=== PATIENT | male | born 1975 | race Caucasian/White ===

== ENCOUNTER 2017-03-29 09:57 | Day surgery (SDC) | payer SELFPAY ==
[~2017-03-29 09:57] MED LIST: IBUPROFEN800 M1 PO
== END 2017-03-29 14:50 ==
LOC: SRG 09:57 → SHSC 09:58 → ORE 12:49 → SHSC 13:15
PROC: 0PSJ04Z Reposition Left Radius with Internal Fixation Device, Open Approach (ICD-10-PCS; principal; 2017-03-29)
DX: S52.552A Other extraarticular fracture of lower end of left radius, initial encounter for closed fracture (principal); Z88.0 Allergy status to penicillin
CPT/HCPCS: C1713; J0690; J2250; J3010